=== PATIENT | female | born 2000 | race Two or more races ===

== ENCOUNTER 2024-02-21 21:43 | Emergency (ER) | payer OTHER ==
[~2024-02-21] VITALS: Ht 157.5 cm; Wt 61.4 kg
[2024-02-21 21:50] VITALS: BP 146/53; PULSE 104; RESP 12; O2SAT 99
== END 2024-02-21 23:10 | disposition left against medical advice (07) ==
LOC: ER 21:43
DX: H57.89 Other specified disorders of eye and adnexa (principal); Z53.21 Procedure and treatment not carried out due to patient leaving prior to being seen by health care provider